=== PATIENT | female | born 1990 | race Asian ===

== ENCOUNTER 2017-04-01 11:08 | Emergency (ER) | payer SELFPAY ==
[~2017-04-01] VITALS: Ht 157.5 cm; Wt 50.0 kg
[2017-04-01 11:09] VITALS: BP 118/86; PULSE 90; RESP 14; TEMP 98; O2SAT 100
[2017-04-01] MEDS ORDERED: TETANUS/DIPHTHERIA TOXOID ADULT 0.5 ML VIAL IM ONE (12:00)
[2017-04-01] MEDS ORDERED: CEPH-460 PO (12:01)
--- NOTE | 2017-04-01 12:02 | PD ---
HPI Chief Complaint: Laceration/Skin Injury Time Seen by Provider: 11:47 Travel History International Travel<30 days: No Contact w/Intl Traveler<30days: No Traveled to known affect area: No History of Present Illness HPI 26-year-old female presents to the emergency department for evaluation of a laceration to her left third digit through the fingernail. Patient states she was cutting a lemon when she slipped and cut her finger. Patient speaks Mandarin, but she says her family does translation. She states her tetanus immunization is not up-to-date. She has no medical problems and takes no medications. Mild severity. No exacerbating or alleviating factors. PFSH Past Medical History ?: Not Social History Alcohol Use: No Tobacco Use: No Substance Use: No Allergies-Medications (Allergen,Severity, Reaction): Coded Allergies: No Known Allergies (Unverified , 04/01/17) Review of Systems Except as stated in HPI: all other systems reviewed are Neg Physical Exam Narrative GENERAL: Well-nourished, well-developed female patient, afebrile. SKIN: Focused skin assessment warm/dry. Patient has a small, less than 0.5 cm laceration to the left third finger at the dorsal aspect through the nail. There is a superficial laceration. No active bleeding. HEAD: Normocephalic. Atraumatic. EYES: No scleral icterus. No injection or drainage. NECK: Supple, trachea midline. No JVD or lymphadenopathy. CARDIOVASCULAR: Regular rate and rhythm without murmurs, gallops, or rubs. RESPIRATORY: Breath sounds equal bilaterally. No accessory muscle use. Lungs sounds are clear to auscultation. MUSCULOSKELETAL: No cyanosis, or edema. BACK: Nontender without obvious deformity. No CVA tenderness. Data Data Last Documented VS Vital Signs Date Time Temp Pulse Resp B/P (MAP) Pulse Ox O2 Delivery O2 Flow Rate FiO2 04/01/17 11:09 98.0 90 14 118/86 (97) 100 Orders Orders Wound Care (04/01/17 11:53) Tetanus/Diphtheria Tox Adult (Tetanus/Di (04/01/17 12:00) MDM Medical Decision Making Medical Screen Exam Complete: Yes Emergency Medical Condition: Yes Medical Record Reviewed: Yes Differential Diagnosis Laceration versus abrasion versus contusion Narrative Course 26-year-old female presents to the emergency department for evaluation of laceration to the left third fingernail. On exam, this is a small superficial laceration. I instructed the patient on proper wound care. I do not believe this is amenable to sutures at this time. Her tetanus immunization is updated. She'll be discharged with a prescription for Keflex. She verbalizes agreement and understanding. The patient was discharged in stable condition with instructions, including return instructions and follow up instructions. Diagnosis Primary Impression: Laceration of fingernail Qualified Codes: S61.319A - Laceration without foreign body of unspecified finger with damage to nail, initial encounter Referrals: Primary Care Physician call for appointment Patient Instructions: Finger Laceration (ED), General Instructions Additional Instructions: Clean area twice daily with soap and water and apply [id number] antibiotic ointment. Keep clean and dry. Take antibiotic as directed until gone. Follow-up with your primary care physician. Return to the emergency department for any acute worsening of symptoms. Med/Other Pt SpecificInfo: Prescription(s) given Scripts Cephalexin (Keflex) 500 Mg Capsule 500 MG PO Q8H for Infection for 5 Days, #15 CAP 0 Refills Prov: Danica Bettencourt 04/01/17 Disposition: 01 DISCHARGE HOME Condition: Stable Danica Bettencourt Apr 01, 2017 12:02
== END 2017-04-01 12:45 | disposition home or self-care (01) ==
LOC: NEPK 11:08
DX: S61.313A Laceration without foreign body of left middle finger with damage to nail, initial encounter (principal); W45.8XXA Other foreign body or object entering through skin, initial encounter; Y93.G1 Activity, food preparation and clean up; Z23 Encounter for immunization
CPT/HCPCS: 90471; 90714